=== PATIENT | male | born 1985 | race Caucasian/White ===

== ENCOUNTER 2017-07-28 09:23 | Emergency (ER) | payer MEDICAID ==
--- NOTE | 2017-07-28 09:38 | EDPHY ---
H & P Stated Complaint: Drooling, numbness, can't walk "for past few weeks" Time Seen by Provider: 07/28/17 09:25 HPI/ROS: CHIEF COMPLAINT: Drooling, abnormal gait HISTORY OF PRESENT ILLNESS: 31-year-old male history of schizophrenia, seizure disorder, arrives via ambulance from his therapist's office after therapist expressed concerns about left sided weakness and his chronic drooling. Patient states that 3 months ago he had a seizure, fell and hit his head and injured his neck. He denies peripheral paresthesia, weakness, numbness. He has been experiencing intermittent headaches and neck pain ever since. No visual acuity changes. No diplopia. No blurry vision. No facial paresthesia. No facial droop. PRIMARY CARE PROVIDER: REVIEW OF SYSTEMS: A ten point review of systems was performed and is negative with the exception of the items mentioned in the HPI PAST MEDICAL & SURGICAL HISTORY: Schizophrenia. Seizure disorder. SOCIAL HISTORY: Denies alcohol or drug use. Lives at [facility]. PHYSICAL EXAM (Prior to examination, patient consented to physical exam, hands were washed and my usual and customary physical exam procedures followed) 1) GENERAL: Well-developed, well-nourished, alert and oriented. Appears to be in no acute distress. Smiling, telling me jokes appears well. Symmetrical faces 2) HEAD: Normocephalic, atraumatic 3) HEENT: Pupils equal, round, reactive to light bilaterally. Sclera anicteric. Nasopharynx, oropharynx, clear, no lesions. Drooling noted. Ears bilaterally with normal tympanic membranes. 4) NECK: Full range of motion, no meningeal signs. 5) LUNGS: Clear auscultation bilaterally, no wheezes, no rhonchi, no retractions. 6) HEART: Regular rate and rhythm, no murmur, no heave, no gallop. 7) ABDOMEN: No guarding, no rebound, no focal tenderness, negative McBurney's, negative Mejía's, negative Rovsing's, negative peritoneal sign, 8) MUSCULOSKELETAL: Moving all extremities, no focal areas of tenderness, no obvious trauma. No peripheral edema or discoloration. 9) BACK: No CVA tenderness, no midline vertebral tenderness, no fluctuance, no step-off, no obvious trauma, no visual or palpable abnormality. 10) SKIN: No rash, no petechiae. 11) Psychiatric: Patient is oriented X 3, there is no agitation. 12) NEURO: Awake, alert, and oriented to person, place and time. Answers questions appropriately. There were no obvious focal neurologic abnormalities. No cerebellar dysfunction. Cranial nerves 2 through to 12 intact. Normal steady gait. Upper and lower extremities bilaterally with strength 5 / 5, reflexes 2+. DIFFERENTIAL DIAGNOSIS: Not necessarily in any particular order, my differential diagnosis includes, but is not limited to, concussion, skull fracture, intraparenchymal contusion, subarachnoid, subdural and epidural hematoma. The patient understands that this diagnosis is provisional and can never be 100% accurate. - Personal History Current Tetanus Diphtheria and Acellular Pertussis (TDAP): Yes - Medical/Surgical History Hx Asthma: No Hx Chronic Respiratory Disease: No Hx Diabetes: No Hx Cardiac Disease: No Hx Renal Disease: No Hx Cirrhosis: No Hx Alcoholism: No Hx HIV/AIDS: No Hx Splenectomy or Spleen Trauma: No Other PMH: MEDICAL- SEIZURES, SCHIZOPHRENIA, BIPOLAR, MIGRAINES, auditory hallucinations. SURGERY- "PART OF MY THROAT REMOVED" - Social History Smoking Status: Heavy smoker Constitutional: Initial Vital Signs Temperature (C) 36.4 C 07/28/17 09:27 Heart Rate 96 07/28/17 09:27 Respiratory Rate 20 07/28/17 09:27 Blood Pressure 130/83 H 07/28/17 09:27 O2 Sat (%) 92 07/28/17 09:27 O2 Delivery Mode Room Air Allergies/Adverse Reactions: Sulfa (Sulfonamide Antibiotics) Allergy (Severe, Verified 07/28/17 09:27) Rash Home Medications: Medication Instructions Recorded GABAPENTIN 01/12/13 [place] Carbonate 01/12/13 Klonopin (RX) 04/21/13 Depakote 07/28/17 INVEGA 07/28/17 Ingrezza 07/28/17 Invega Trinza 07/28/17 Medical Decision Making - Diagnostics Imaging Results: Imaging Impressions Cervical Spine CT 07/28/17 10:11 Impression: No acute subacute or chronic posttraumatic abnormality identified. Stable since January 2006. 2. CT Cervical Spine Without Contrast, 10:28 AM History: Subacute trauma. Difficulty walking. Technique: Multislice helical CT through the cervical spine without contrast from the skull base to T1. Soft tissue and bone evaluation is performed. Sagittal and coronal reconstructions are obtained and reviewed. Dose reduction techniques were utilized. Comparison: January 22, 2006 Findings: Cervical alignment is anatomic. No fracture or dislocation is identified. The relationship between skull base and C1 is normal. The C1-C2 articulation is normally aligned. The odontoid process is intact. Disk spaces maintain their normal height. There is a new moderate central disk bulge at C4- C5 and a chronic central somewhat eccentric to the right moderate disk bulge or protrusion at C5-C6. . Facet joints are normally aligned. The cervical thoracic junction is normally aligned. There is a new mild superior endplate compression deformity of T2. On sagittal reconstructions it is difficult to exclude a central canal abnormality in the upper thoracic spine. Soft tissue window evaluation does not show evidence of a cervical epidural or prevertebral hematoma. Incidentally noted is maxillary and mandibular periodontal disease. Impression: 1. New since 2005 mild T2 compression. 2. Due to low-dose technique it is difficult to exclude an upper thoracic cord abnormality. Results discussed with CHANDANA Short and 10:56 AM. Final results are concordant with the initial interpretation. General information for patients regarding this examination can be found at [email or web address]. If you have questions or comments about this report, please contact me at (hospital) or [phone] (cell). Head CT 07/28/17 10:11 Impression: No acute subacute or chronic posttraumatic abnormality identified. Stable since January 2006. 2. CT Cervical Spine Without Contrast, 10:28 AM History: Subacute trauma. Difficulty walking. Technique: Multislice helical CT through the cervical spine without contrast from the skull base to T1. Soft tissue and bone evaluation is performed. Sagittal and coronal reconstructions are obtained and reviewed. Dose reduction techniques were utilized. Comparison: January 22, 2006 Findings: Cervical alignment is anatomic. No fracture or dislocation is identified. The relationship between skull base and C1 is normal. The C1-C2 articulation is normally aligned. The odontoid process is intact. Disk spaces maintain their normal height. There is a new moderate central disk bulge at C4- C5 and a chronic central somewhat eccentric to the right moderate disk bulge or protrusion at C5-C6. . Facet joints are normally aligned. The cervical thoracic junction is normally aligned. There is a new mild superior endplate compression deformity of T2. On sagittal reconstructions it is difficult to exclude a central canal abnormality in the upper thoracic spine. Soft tissue window evaluation does not show evidence of a cervical epidural or prevertebral hematoma. Incidentally noted is maxillary and mandibular periodontal disease. Impression: 1. New since 2005 mild T2 compression. 2. Due to low-dose technique it is difficult to exclude an upper thoracic cord abnormality. Results discussed with CHANDANA Shrot and 10:56 AM. Final results are concordant with the initial interpretation. General information for patients regarding this examination can be found at [email or web address]. If you have questions or comments about this report, please contact me at [phone](hospital) or [phone] (cell). ED Course/Re-evaluation: 9:40 a.m.: I saw this patient independently based on established practice protocols. Care of patient under supervision of primary Supervising physician Dr Toscano with whom I discussed case. Will obtain CT imaging of the headAnd C- spine as he notes history of head injury 2 months ago as he states that he has been feeling off ever since.. He has no midline pain no peripheral neurologic deficits. 10:48 a.m.: Nursing staff has received patient's medication list confirmed that he is no longer on lithium. Patient was re-evaluated with serial examinations. Initial and on repeat exams he smiling, appears well, has a nonfocal neurologic exam. Case was discussed with Dr. Toscano in the ER. . Regarding the patient's possible T2 compression fracture. This was an injury that occurred 3 months ago. The patient denies injury since then. In Addition he has a nonfocal neurologic exam. Plan will therefore be discharged home without further imaging from the emergency department. Patient feels comfortable being discharged. Usual and customary discharge precautions and instructions provided. - Data Points Laboratory Results: Laboratory Results 07/28/17 09:30 07/28/17 09:50 07/28/17 07/28/17 07/28/17 09:50 09:50 09:30 WBC 7.31 10^3/uL 10^3/uL (3.80-9.50) RBC 5.86 10^6/uL 10^6/uL (4.40-6.38) Hgb 17.7 g/dL H g/dL (13.7-17.5) Hct 51.3 % H % (40.0-51.0) MCV 87.5 fL fL (81.5-99.8) MCH 30.2 pg pg (27.9-34.1) MCHC 34.5 g/dL g/dL (32.4-36.7) RDW 12.4 % % (11.5-15.2) Plt Count 217 10^3/uL 10^3/uL (150-400) MPV 9.0 fL fL (8.7-11.7) Neut % (Auto) 59.5 % % (39.3-74.2) Lymph % (Auto) 23.5 % % (15.0-45.0) [place] % (Auto) 11.4 % % (4.5-13.0) Eos % (Auto) 4.8 % % (0.6-7.6) Baso % (Auto) 0.7 % % (0.3-1.7) Nucleat RBC Rel Count 0.0 % % (0.0-0.2) Absolute Neuts (auto) 4.35 10^3/uL 10^3/uL (1.70-6.50) Absolute Lymphs (auto) 1.72 10^3/uL 10^3/uL (1.00-3.00) Absolute Monos (auto) 0.83 10^3/uL H 10^3/uL (0.30-0.80) Absolute Eos (auto) 0.35 10^3/uL 10^3/uL (0.03-0.40) Absolute Basos (auto) 0.05 10^3/uL 10^3/uL (0.02-0.10) Absolute Nucleated RBC 0.00 10^3/uL 10^3/uL (0-0.01) Immature Gran % 0.1 % % (0.0-1.1) Immature Gran # 0.01 10^3/uL 10^3/uL (0.00-0.10) Sodium 144 mEq/L mEq/L (135-145) Potassium 4.8 mEq/L mEq/L (3.3-5.0) Chloride 103 mEq/L mEq/L (97-110) Carbon Dioxide 27 mEq/l mEq/l (22-31) Anion Gap 14 mEq/L mEq/L (8-16) BUN 9 mg/dL mg/dL (7-23) Creatinine 0.9 mg/dL mg/dL (0.7-1.3) Estimated GFR > 60 Glucose 94 mg/dL mg/dL (70-100) Calcium 9.8 mg/dL mg/dL (8.5-10.4) TSH 1.110 uIU/mL uIU/mL (0.465-4.680) Valproic Acid 70.3 mcg/mL mcg/mL (50.0-150.0) [place] < 0.2 mEq/L L mEq/L (0.6-1.2) Departure - Departure Disposition: Home, Routine, Self-Care Clinical Impression: Schizophrenia Qualifiers: Schizophrenia type: other Qualified Code(s): F20.89 - Other schizophrenia; F20.8 - Other schizophrenia Head injury Qualifiers: Encounter type: initial encounter Qualified Code(s): S09.90XA - Unspecified injury of head, initial encounter Condition: Good Instructions: Schizophrenia (ED), Head Injury (ED) Additional Instructions: PLEASE RETURN TO THE EMERGENCY DEPARTMENT (ED) IMMEDIATELY IF YOU HAVE INCREASED HEADACHE, PERSISTENT HEADACHE, VOMITING, WEAKNESS, CONFUSION OR VISUAL PROBLEMS. WE RECOMMEND THAT YOU DO NOT RESUME CONTACT SPORTS OR ACTIVITIES THAT TAKE COORDINATION OR BALANCE SUCH SKIING OR RIDING A BICYCLE UNTIL CLEARED TO DO SO BY YOUR DOCTOR OR BY A NEUROLOGIST. Referrals: [facility],. [Clinic] - As per Instructions NIH Stroke Scale Date of Exam: 07/28/17 Time of Exam: 09:30 Level of Consciousness: Alert LOC Questions: Answers Both LOC Commands: Performs Both Correctly Best Gaze: Normal Visual: No Visual Loss Facial Palsy: Normal Motor Arm-Left: No Drift Motor Arm-Right: No Drift Motor Leg-Left: No Drift Motor Leg-Right: No Drift Limb Ataxis: Absent Sensory: Normal Best Language: No Aphasia Dysarthria: Normal Extinction and Inattention (Neglect): No Abnormality NIH Scale Score: 0
[2017-07-28 10:06] LABS: PLATELET COUNT 217 10^3/uL (150-400)
[2017-07-28 12:04] VITALS: BP 118/68
--- NOTE | 2017-07-28 12:31 | ASDISCHSUM ---
Discharge Information Plan Status:Home with No Needs Medically Cleared to Leave: Discharge Date:07/28/2017 12:04 PM CM D/C Disposition:Home, Routine, Self-Care ADT D/C Disposition:Home, Routine, Self-Care Projected Discharge Date:07/28/2017 12:04 PM Transportation at D/C:Bus Ticket Discharge Delay Reason: Follow-Up Date:07/28/2017 12:04 PM Discharge Slot: Final Diagnosis: Placement Information Patient Contact Information Contact Name:EAMON Relationship:Father Address: Home Phone: City:[place] Alternate Phone: State/Zip Code:[place] Email: Financial Information Financial Class:Medicaid Primary Plan Desc:[employer] Primary Plan Number:[id number] Secondary Plan Desc: Secondary Plan Number: Assessment Information Intervention Information Intervention Type:Bus Pass Date of Service:07/28/2017 12:29 PM Patient Type:Emergency Room Staff Member:CARMEN Zapine Sharon Hours:0.25 Discipline:Host/Hostess Head Severity: Comment:
--- NOTE | 2017-07-29 22:31 | ASMTCMCOM ---
CM Note CM Note Notes: Late Entry from 07/28/17: Pt presented to the ED for having difficulty walking and increased drooling. Pt has history of schizophrenia and is followed by [facility]; pt's current med list was obtained and communicated to the ED provider. Pt was discharged home and was provided a bus pass. He lives in [facility] housing on [facility]. Entry from 07/29/17 ([facility]): Pt presented to the ED again for similar symptoms and was recommended to be admitted for possible encephelopathy and continued monitoring/workup. Patient refused admission and wanted to discharge back home. This CM spoke w/Nely ([phone]) at [facility] at the [facility] and relayed pt's recent ED visits. Nely said patient walked into their clinic after being discharged from the ED today. Nely will relay pt's medication and dehydration concerns to pt's provider and also to his P RN, Tanya Elkins (pt is followed by Dr Randolph). CM available for further assistance if needed. Date Signed: 07/29/2017 04:50 PM Electronically Signed By:Leah Zapien RN
== END 2017-07-28 12:04 | disposition home or self-care (01) ==
LOC: EDUNIT#
DX: S09.90XA Unspecified injury of head, initial encounter (principal); F20.89 Other schizophrenia; F17.200 Nicotine dependence, unspecified, uncomplicated; W01.198A Fall on same level from slipping, tripping and stumbling with subsequent striking against other object, initial encounter; Y99.8 Other external cause status

== ENCOUNTER 2017-07-29 12:15 | Emergency (ER) | payer MEDICAID ==
[2017-07-30 07:10] VITALS: BP 146/120
[2017-07-31 12:38] LABS: CREATINE KINASE 61 IU/L (0-224)
--- NOTE | 2017-08-01 00:14 | EDPHY ---
H & P Stated Complaint: WEAKNESS AND LETHARGY Source: Patient, RN/MD, Old records Exam Limitations: No limitations - Personal History Current Tetanus/Diphtheria Vaccine: Unsure Current Tetanus Diphtheria and Acellular Pertussis (TDAP): Unsure - Medical/Surgical History Hx Asthma: No Hx Chronic Respiratory Disease: No Hx Diabetes: No Hx Cardiac Disease: No Hx Renal Disease: No Hx Cirrhosis: No Hx Alcoholism: No Hx HIV/AIDS: No Hx Splenectomy or Spleen Trauma: No Other PMH: MEDICAL- SEIZURES, SCHIZOPHRENIA, BIPOLAR, MIGRAINES, auditory hallucinations. SURGERY- "PART OF MY THROAT REMOVED" - Social History Smoking Status: Heavy smoker Time Seen by Provider: 07/29/17 12:20 HPI/ROS: HPI: This is a 31-year-old male who presents with Chief Complaint: WEAKNESS AND LETHARGY Location: Body Quality: Weakness and lethargy Duration: Several days Signs and Symptoms: no shortness of breath at rest, no shortness of breath on exertion, no cough, no chest pain, no palpitations, no lower extremity edema, no wheezing, no orthopnea, no paroxysmal nocturnal dyspnea, no fever, no injury/ trauma, no hemoptysis, no carpal pedal spasms Timing: Daily Severity: Moderate Context: Patient has a history of schizophrenia, bipolar, auditory hallucinations, seizure activity takes lithium, Depakote, Ingrezza, Invega for the 2nd time to the emergency room in 2 days with complaints of lower extremity tingling and whole body weakness and fatigue. EMS was called to [facility] where he lives. Denies any medication overdoses. Reports that he has not been congestion for over a week and decided to take a pill today which actually improved his symptoms. He was seen here yesterday with drooling and lip smacking with a head CT that was negative and a CT cervical spine that showed mild T12 compression fracture. He reports that he does not drink liquids and that he feels dehydrated. EMS blood glucose is 133 upon arrival. He has not eaten any food today.. O2 sats were 93% on room air. He denies any recent upper respiratory symptoms. Modifying Factors: Regular medications Comment: ROS: see HPI Constitutional: No fever, no chills, no weight loss Eyes: No blurred vision Respiratory: No shortness of breath, no cough Cardiovascular: No chest pain, no palpitations, no lower extremity edema Gastrointestinal: No nausea, no vomiting, no diarrhea Genitourinary: No dysuria Extremities: No myalgias Neurologic: No weakness, no numbness Skin: No rashes Hematologic: No bruising, no bleeding MEDICAL/SURGICAL/SOCIAL HISTORY: Medical history: MEDICAL- SEIZURES, SCHIZOPHRENIA, BIPOLAR, MIGRAINES, auditory hallucinations SURGERY- "PART OF MY THROAT REMOVED" Social history: Lives in [facility] half-way. CONSTITUTIONAL: Nontoxic-appearing adult male, awake and alert, no obvious distress HEENT: Atraumatic and normocephalic, PERRL, EOMI. Nares patent; no rhinorrhea; no nasal mucosal edema. Tympanic membranes clear. Oropharynx clear, no exudate and moist pink mucosa. Airway patent. No lymphadenopathy. No meningismus. Cardiovascular: Normal S1/S2, regular rate, regular rhythm, without murmur rub or gallop. PULMONARY/CHEST: Symmetrical and nontender. Clear to auscultation bilaterally. Good air movement. No accessory muscle usage. ABDOMEN: Soft, nondistended, nontender, no rebound, no guarding, no peritoneal signs, no masses or organomegaly. No CVAT. EXTREMITIES: 2/2 pulses, strength 5/5, no deformities, no clubbing, no cyanosis or edema. NEUROLOGICAL: no focal neuro deficits. GCS 15. SKIN: Warm and dry, no erythema. no rash. Good capillary refill. (Kaylene Machado) Constitutional: Initial Vital Signs Temperature (C) 37.0 C 07/29/17 12:15 Heart Rate 93 07/29/17 12:15 Respiratory Rate 16 07/29/17 12:15 Blood Pressure 110/78 07/29/17 12:15 O2 Sat (%) 100 07/29/17 12:15 O2 Delivery Mode Room Air Allergies/Adverse Reactions: Sulfa (Sulfonamide Antibiotics) Allergy (Severe, Verified 07/28/17 09:27) Rash Home Medications: Medication Instructions Recorded GABAPENTIN 01/12/13 [place] Carbonate 01/12/13 Klonopin (RX) 04/21/13 Depakote 07/28/17 INVEGA 07/28/17 Ingrezza 07/28/17 Invega Trinza 07/28/17 Medical Decision Making ED Course/Re-evaluation: Labs, urinalysis, chest x-ray, blood cultures, IV fluids, urine drug screen ordered Etiology I suspect this to be related to dehydration vs. extrapyramidal symptoms fom psychiatric medication. Patient given 1 L normal saline with resolution of symptoms. Chest x-ray shows no signs of opacity, no effusion, no widened mediastinum, no pneumothorax. Labs reviewed. No signs of leukocytosis/anemia/platelet dysfunction/DENYS/ elevated LFTs/electrolyte imbalance/pancreatitis/hepatic encephalopathy. Urinalysis was unremarkable urine drug screen was negative. Offer patient admission for encephalopathy and he politely declined as he reports that he is feeling better. He has an appointment with his psychiatrist in 2 days and he wants to discuss using Cogentin medication again as it made him feel better. This patient was seen under the supervision of my secondary supervising physician. I evaluated care for this patient independently. Discussed this patient with Dr. Zabala who did not see the patient. This chart was completed 2 days after the patient was seen in the emergency room as the hospital sustained a down time in the electronic medical records. Please note that the chart may be incomplete. (Kaylene Machado) Differential Diagnosis: Weakness including but not limited to electrolyte abnormality, depression, anxiety, CVA, spinal cord abnormality, and infectious causes. (Kaylene Machado) Other Provider: This note was created during prolonged hospital-wide EHR downtime and may be incomplete or contain inaccuracies to due circumstance limitations. (Yogi Zabala) - Data Points Laboratory Results: Laboratory Results 07/29/17 14:23 Microbiology Results: MICROBIOLOGY 07/29/17 13:30 Blood Blood Culture - Preliminary Departure - Departure Disposition: Home, Routine, Self-Care Clinical Impression: Medication side effects Condition: Good Instructions: Extrapyramidal Symptoms (ED) Additional Instructions: Consume a minimum of 8-10 glasses of water or electrolyte fluid replacement drinks that include Gatorade, Powerade, Pedialyte. Please follow-up with your psychiatrist in the next 2-3 days to discuss your medications. Referrals: Elsa Marshall MD [Primary Care Provider] - 2-3 days, if not improved
== END 2017-07-29 15:50 | disposition home or self-care (01) ==
DX: R53.1 Weakness (principal); T43.595A Adverse effect of other antipsychotics and neuroleptics, initial encounter; F17.200 Nicotine dependence, unspecified, uncomplicated
CPT/HCPCS: 80305